=== PATIENT | female | born 1980 | race American Indian/Alaskan Native ===

== ENCOUNTER 2017-11-07 07:23 | Emergency (ER) | payer OTHER ==
[2017-11-07 08:04] VITALS: BP 135/78
[2017-11-07 08:38] LABS: Bilirubin,Urine NEG (Negative); Blood,Urine SM (Negative); Color,Urine Straw (Yellow); Protein,Urine <15 mg/dL mg/dL (Negative); RBC,Urine < 1.0 /HPF (0.0-6.0); Urobilinogen,Urine < 2.0 mg/dL (<2.0); WBC,Urine < 1.0 /HPF (0.0-6.0)
[2017-11-07 08:44] LABS: HCG Qualitative,Urine Negative (Negative)
[2017-11-07] MEDS ORDERED: TORADOL IM ONE (09:21)
--- NOTE | 2017-11-07 09:24 | Emergency Department Report ---
ED Back Pain/Injury HPI - General Chief Complaint: Back Pain/Injury Stated Complaint: EXSCRUCIATING BACK PAIN AND NAUSATED Time Seen by Provider: 11/07/17 09:15 Source: patient Limitations: No Limitations - History of Present Illness Initial Comments: Patient is a 37-year-old female with no significant past medical history. Patient presented to the ER complaining off lower back pain that started 6 days ago when she bent over to parts picker a TV remote. Patient denied any weakness, numbness or tingling sensation. She denied any bowel or bladder incontinence. She also denied any fever. MD Complaint: back pain -: days(s) Similar Symptoms Previously: No Place: home Radiation: right leg Severity scale (0 -10): 5 Context: bending Associated Symptoms: denies other symptoms - Related Data Allergies Allergy/AdvReac Type Severity Reaction Status Date / Time No Known Allergies Allergy Unverified 11/07/17 07:59 ED Review of Systems ROS: Stated complaint: EXSCRUCIATING BACK PAIN AND NAUSATED Other details as noted in HPI Comment: All other systems reviewed and negative Constitutional: denies: chills, fever Cardiovascular: denies: chest pain, palpitations Gastrointestinal: denies: abdominal pain, nausea, vomiting, diarrhea Musculoskeletal: back pain Neurological: denies: headache, weakness, numbness, paresthesias, confusion ED Past Medical Hx - Past Medical History Previous Medical History?: No - Surgical History Past Surgical History?: Yes Additional Surgical History: cyst removed from ovaries, Miscarriage x 6 with D& C done for all 6 miscarriages - Social History Smoking Status: Never Smoker Substance Use Type: Alcohol, Non Opiate Pain ED Physical Exam - General Limitations: No Limitations General appearance: alert, in no apparent distress - Head Head exam: Present: atraumatic, normocephalic, normal inspection - Eye Eye exam: Present: normal appearance - ENT ENT exam: Present: normal exam - Neck Neck exam: Present: normal inspection, full ROM. Absent: tenderness, meningismus, lymphadenopathy, thyromegaly - Respiratory Respiratory exam: Present: normal lung sounds bilaterally. Absent: respiratory distress, wheezes, rales, rhonchi, stridor, chest wall tenderness, accessory muscle use, decreased breath sounds, prolonged expiratory - Cardiovascular Cardiovascular Exam: Present: regular rate, normal rhythm, normal heart sounds - GI/Abdominal GI/Abdominal exam: Present: soft. Absent: distended, tenderness, guarding, rebound, rigid, mass, bruit - Extremities Exam Extremities exam: Present: normal inspection, full ROM, normal capillary refill. Absent: tenderness, pedal edema, calf tenderness - Back Exam Back exam: Present: normal inspection, full ROM, tenderness, muscle spasm, paraspinal tenderness. Absent: CVA tenderness (R), vertebral tenderness, rash noted - Neurological Exam Neurological exam: Present: alert, oriented X3, CN II-XII intact, normal gait, reflexes normal. Absent: motor sensory deficit - Skin Skin exam: Present: warm, intact, normal color ED Course Vital Signs 11/07/17 07:59 Temperature 97.9 F Pulse Rate 87 Respiratory 20 Rate Blood Pressure 135/78 O2 Sat by Pulse 100 Oximetry ED Medical Decision Making - Radiology Data Radiology results: report reviewed Referring Physician: ETHEL FLYNN Patient Name: RENEE CLINTON Date of : 1980 Sex: Female Report Date: 2017-11-07 Report Status: [place] [address] XRay Report Signed Patient: RENEE CLINTON MR#: [id number] : 1980 Acct:[id number] Age/Sex: 37 / F ADM Date: 11/07/17 Loc: ED Attending Dr: Ordering Physician: ETHEL FLYNN Date of Service: 11/07/17 Procedure(s): XR spine lumbosacral 2-3V Accession Number(s): [id number] cc: ETHEL FLYNN Fluoro Time In Minutes: LUMBOSACRAL SPINE, 3 VIEWS: History: Back pain Findings: The vertebral bodies, disk spaces and posterior elements are intact. No compression deformity or malalignment. The SI joints are symmetric and unremarkable. Impression: 1. No evidence for acute injury to the lumbar spine. Transcribed By: TTR Dictated By: NURIA PERKINS JR, MD Electronically Authenticated By: NURIA PERKINS JR, MD Signed Date/Time: 11/07/17 1033 DD/ 1033 TD/TT: 11/07/17 1033 Critical care attestation.: If time is entered above; I have spent that time in minutes in the direct care of this critically ill patient, excluding procedure time. ED Disposition Clinical Impression: Back pain Disposition: DC-01 TO HOME OR SELFCARE Is pt being admited?: No Condition: Stable Instructions: Sciatica (ED), Lumbar Radiculopathy (ED) Referrals: ABDIEL MORENO MD [Primary Care Provider] - 3-5 Days
--- NOTE | 2017-11-07 10:43 | XRay Report ---
LUMBOSACRAL SPINE, 3 VIEWS: History: Back pain Findings: The vertebral bodies, disk spaces and posterior elements are intact. No compression deformity or malalignment. The SI joints are symmetric and unremarkable. Impression: 1. No evidence for acute injury to the lumbar spine.
== END 2017-11-07 11:06 | disposition home or self-care (01) ==
LOC: ED 07:23
DX: M54.5 Low back pain (principal)
CPT/HCPCS: 72100; 81001; 81025; 96372; 99283; J1885